=== PATIENT | male | born 1955 | race Caucasian/White ===

== ENCOUNTER 2020-04-14 09:34 | Inpatient (IN) | payer MEDICARE ==
[~2020-04-14] VITALS: Ht 162.6 cm; Wt 63.5 kg
[2020-04-14 09:59] VITALS: BP 106/72
[2020-04-14 10:22] LABS: BASOPHILS % (AUTO) 0.6 % (0.0-2.0); EOSINOPHILS % (AUTO) 0.9 % (0.0-3.0); HEMATOCRIT 40.6 % (42.0-52.0); HEMOGLOBIN 13.1 G/DL (14.2-18.0); LYMPHOCYTES % (AUTO) 12.1 % (20.0-45.0); MEAN CORPUSCULAR VOLUME 83 FL (80-99); MONOCYTES % (AUTO) 5.2 % (1.0-10.0); NEUTROPHILS % (AUTO) 81.2 % (45.0-75.0); PLATELET COUNT 219 K/UL (150-450); RED BLOOD COUNT 4.88 M/UL (4.70-6.10); WHITE BLOOD COUNT 10.1 K/UL (4.8-10.8)
[2020-04-14] MEDS ORDERED: METFORMIN HCL500 M1 ORAL (10:25)
[2020-04-14] MEDS ORDERED: LOSARTAN POTASS50 MG ORAL (10:25)
[2020-04-14] MEDS ORDERED: METOPROLOL TART25 MG ORAL (10:25)
[2020-04-14] MEDS ORDERED: AMLODIPINE BESY10 MG ORAL (10:25)
[2020-04-14] MEDS ORDERED: ATIVAN1 MG ORAL (10:25)
[2020-04-14] MEDS ORDERED: ASPIRIN81 MG ORAL (10:25)
[2020-04-14] MEDS ORDERED: ATORVASTATIN CA40 MG ORAL (10:25)
[2020-04-14] MEDS ORDERED: INVEGA6 MG PO (10:25)
[2020-04-14] MEDS ORDERED: FERROUS SULFAT325 MG ORAL (10:25)
[2020-04-14] MEDS ORDERED: FLUOXETINE HCL10 M2 ORAL (10:25)
--- NOTE | 2020-04-14 10:25 | Emergency Room Report ---
History of Present Illness General Chief Complaint: General Complaint Source: Patient Present Illness HPI 65-year-old male history of hypertension, living in a boarding care presents with increasing confusion forgetfulness over the past few days, no known aggravating alleviating factors severity is moderate, constant patient was sent in by his primary care physician Dr. Benson, patient currently has a victoria review of systems negative no fevers no chills no headaches no chest pain no shortness of breath no nausea no vomiting no abdominal pain no dysuria no diarrhea. Patient states nothing is currently bothering him Allergies: Coded Allergies: No Known Allergies (Unverified , 04/14/20) COVID-19 Screening Contact w/high risk pt: No Experienced COVID-19 symptoms?: No COVID-19 Testing performed MORTUARY BEAUTICIAN: No Patient History Past Medical History: see triage record Reviewed Nursing Documentation: PMH: Agreed; PSxH: Agreed Nursing Documentation-PMH Past Medical History: No History, Except For Hx Diabetes: Yes Review of Systems All Other Systems: negative except mentioned in HPI Physical Exam Vital Signs Date Time Temp Pulse Resp B/P (MAP) Pulse Ox O2 Delivery O2 Flow Rate FiO2 04/14/20 09:39 97.3 71 19 116/66 (83) 98 Room Air Sp02 EP Interpretation: reviewed, normal General Appearance: well appearing, no apparent distress, alert Head: normocephalic, atraumatic Eyes: bilateral eye PERRL, bilateral eye EOMI ENT: uvula midline, moist mucus membranes Neck: supple, thyroid normal, supple/symm/no masses Respiratory: lungs clear, no respiratory distress, no retraction, no accessory muscle use Cardiovascular #1: normal peripheral pulses, regular rate, rhythm, no edema, no gallop, no murmur Gastrointestinal: non tender, soft, no guarding, no rebound Musculoskeletal: normal inspection Neurologic: alert, oriented x3 Psychiatric: mood/affect normal Skin: no rash, warm/dry Medical Decision Making Diagnostic Impression: Primary Impression: AMS (altered mental status) Qualified Codes: R41.82 - Altered mental status, unspecified Additional Impression: Dehydration ER Course 65-year-old male resents with increasing confusion altered mental state, differential includes electrolyte, metabolic, infectious. Patient will be worked up thoroughly, plan for admission and evaluation by his primary care physician Patient with elevated lactic acid, possible dehydration, patient given 1L NS Patient admitted to Dr. Marcelino Laboratory Tests Test 04/14/20 09:55 04/14/20 10:10 04/14/20 10:45 POC Whole Blood Glucose 134 MG/DL (74-106) H White Blood Count 10.1 K/UL (4.8-10.8) Red Blood Count 4.88 M/UL (4.70-6.10) Hemoglobin 13.1 G/DL (14.2-18.0) L Hematocrit 40.6 % (42.0-52.0) L Mean Corpuscular Volume 83 FL (80-99) Mean Corpuscular Hemoglobin 26.7 PG (27.0-31.0) L Mean Corpuscular Hemoglobin Concent 32.2 G/DL (32.0-36.0) Red Cell Distribution Width 13.0 % (11.6-14.8) Platelet Count 219 K/UL (150-450) Mean Platelet Volume 8.8 FL (6.5-10.1) Neutrophils (%) (Auto) 81.2 % (45.0-75.0) H Lymphocytes (%) (Auto) 12.1 % (20.0-45.0) L Monocytes (%) (Auto) 5.2 % (1.0-10.0) Eosinophils (%) (Auto) 0.9 % (0.0-3.0) Basophils (%) (Auto) 0.6 % (0.0-2.0) Prothrombin Time 11.8 SEC (9.30-11.50) H Prothrombin Time INR 1.1 (0.9-1.1) Activated Partial Thromboplast Time 27 SEC (23-33) Sodium Level 137 MMOL/L (136-145) Potassium Level 3.7 MMOL/L (3.5-5.1) Chloride Level 100 MMOL/L (98-107) Carbon Dioxide Level 27 MMOL/L (21-32) Anion Gap 10 mmol/L (5-15) Blood Urea Nitrogen 17 mg/dL (7-18) Creatinine 1.2 MG/DL (0.55-1.30) Estimated Glomerular Filtration Rate > 60 mL/min (>60) Glucose Level 131 MG/DL (74-106) H Lactic Acid Level 2.80 mmol/L (0.4-2.0) H Calcium Level 9.5 MG/DL (8.5-10.1) Phosphorus Level 1.6 MG/DL (2.5-4.9) L Magnesium Level 1.4 MG/DL (1.8-2.4) L Total Bilirubin 0.6 MG/DL (0.2-1.0) Aspartate Amino Transferase (AST) 17 U/L (15-37) Alanine Aminotransferase (ALT) 18 U/L (12-78) Alkaline Phosphatase 103 U/L (46-116) Creatine Kinase MB 1.0 NG/ML (0.0-3.6) Troponin I 0.000 ng/mL (0.000-0.056) Pro-B-Type Natriuretic Peptide 346 pg/mL (0-125) H Total Protein 7.2 G/DL (6.4-8.2) Albumin 3.7 G/DL (3.4-5.0) Globulin 3.5 g/dL Albumin/Globulin Ratio 1.1 (1.0-2.7) Lipase 175 U/L (73-393) Urine Color Pale yellow Urine Appearance Clear Urine pH 8 (4.5-8.0) Urine Specific [place] 1.005 (1.005-1.035) Urine Protein Negative (NEGATIVE) Urine Glucose (UA) Negative (NEGATIVE) Urine Ketones Negative (NEGATIVE) Urine Blood Negative (NEGATIVE) Urine Nitrite Negative (NEGATIVE) Urine Bilirubin Negative (NEGATIVE) Urine Urobilinogen Normal MG/DL (0.0-1.0) Urine Leukocyte Esterase Negative (NEGATIVE) EKG Diagnostic Results Troponin ordered: Yes When was troponin ordered?: Apr 14, 2020 EKG Time: 09:57 EP Interpretation: NSR, rate 63, QTc 448, no acute ST elevations, normal axis Rhythm Strip Diag. Results Rhythm Strip Time: 10:24 EP Interpretation: yes Rate: 62 Rhythm: NSR, no PVC's, no ectopy Chest X-Ray Diagnostic Results Chest X-Ray Diagnostic Results : Chest X-Ray Ordered: Yes # of Views/Limited/Complete: 1 View Indication: Chest Pain EP Interpretation: Yes Interpretation: no consolidation, no effusion, no pneumothorax, no acute cardiopulmonary disease Impression: No acute disease Electronically Signed by: Alberto Rivera MD CT/MRI/US Diagnostic Results CT/MRI/US Diagnostic Results : Impression CT head: No acute intracranial processes Last Vital Signs Date Time Temp Pulse Resp B/P (MAP) Pulse Ox O2 Delivery O2 Flow Rate FiO2 04/14/20 09:59 97.0 65 12 106/72 100 Room Air Disposition: ADMITTED INPATIENT Condition: Stable Referrals: NOT CHOSEN IPA/,REFERRING (PCP) Alberto Rivera MD Apr 14, 2020 10:25
[2020-04-14 10:30] LABS: INR 1.1 (0.9-1.1)
[2020-04-14 10:39] LABS: ANION GAP 10 mmol/L (5-15); BLOOD UREA NITROGEN 17 mg/dL (7-18); CALCIUM 9.5 MG/DL (8.5-10.1); CARBON DIOXIDE 27 MMOL/L (21-32); CHLORIDE 100 MMOL/L (98-107); CREATININE 1.2 MG/DL (0.55-1.30); POTASSIUM 3.7 MMOL/L (3.5-5.1); SODIUM 137 MMOL/L (136-145)
[2020-04-14 10:52] LABS: ALANINE AMINOTRANSFERASE 18 U/L (12-78); ALBUMIN 3.7 G/DL (3.4-5.0); ALBUMIN/GLOBULIN RATIO 1.1 (1.0-2.7); ALKALINE PHOSPHATASE 103 U/L (46-116); ASPARTATE AMINO TRANSFERASE 17 U/L (15-37); BILIRUBIN,TOTAL 0.6 MG/DL (0.2-1.0); PHOSPHORUS 1.6 MG/DL (2.5-4.9)
[2020-04-14 11:04] LABS: APPEARANCE,URINE CLEAR; BILIRUBIN, URINE NEGATIVE (NEGATIVE); COLOR,URINE PALE YELLOW; GLUCOSE, URINE (UA) NEGATIVE (NEGATIVE); KETONES,URINE NEGATIVE (NEGATIVE); LEUKOCYTE ESTERASE ,URINE NEGATIVE (NEGATIVE); NITRITE,URINE NEGATIVE (NEGATIVE); PH,URINE 8 (4.5-8.0); PROTEIN,URINE NEGATIVE (NEGATIVE); UROBILINOGEN,URINE NORMAL MG/DL (0.0-1.0)
--- NOTE | 2020-04-14 12:45 | NUR ---
Report called to floor for pending admission. Asked by nurse to wait for 15mins until room is cleaned.
--- NOTE | 2020-04-14 12:52 | Diagnostic Imaging Report ---
Indications: Altered mental status Technique: Spiral acquisitions obtained through the brain. Angled axial and coronal 5 x 5 mm slices were reconstructed. Total dose length product 1098 mGycm. CTDI vol(s) 53 mGy. Dose reduction achieved using automated exposure control Comparison: None. Findings: There is age-related enlargement of the ventricles and extra axial CSF spaces. There is minimal periventricular deep white matter low-attenuation consistent with chronic microvascular ischemic change. Normal blum-white differentiation otherwise. No acute intracranial hemorrhage or edema, mass effect, nor midline shift. The mastoids are clear. Visualized orbits and sinuses are unremarkable. Impression: Chronic and age-related changes. Negative for acute intracranial bleed or mass effect The CT scanner at [facility] is accredited by the [employer] and the scans are performed using protocols designed to limit radiation exposure to as low as reasonably achievable to attain images of sufficient resolution adequate for diagnostic evaluation.
--- NOTE | 2020-04-14 13:05 | NUR ---
Received patient from assisted living facility. Per facility, patient exhibited AMS and was sent for observation but he will not be accepted back to facility. Patient came in to ER with 7 bags of clothing. Since coming in to ER, patient has been stable. AAOX3-4. Came in wearing pull-ups but was able to use a urinal when asked. Able to follow all commands. Ambulates with assistance of walker. Will be admitted until placement is found.
--- NOTE | 2020-04-14 13:20 | NUR ---
Seen by admitting Dr Benson. Patient will be admitted and transported to floor.
[2020-04-14] MEDS ORDERED: LORazepam 1mg tab ORAL PRN (13:30)
--- NOTE | 2020-04-14 13:54 | History and Physical ---
History of Present Illness General Date patient seen: Apr 14, 2020 Time patient seen: 13:00 Reason for Hospitalization: weakness Present Illness HPI 65-year-old male history of hypertension, living in a boarding care presents with increasing confusion forgetfulness over the past few days, no known aggravating alleviating factors severity is moderate, constant patient was sent in by me. The patient currently has a victoria review of systems negative no fevers no chills no headaches no chest pain no shortness of breath no nausea no vomiting no abdominal pain no dysuria no diarrhea. Patient states nothing is currently bothering him and in initial blood work was noted to be dehydrated with electrolyte imbalance. His Lactic acid was elevated and no acute source of infection is noted. Allergies: Coded Allergies: No Known Allergies (Unverified , 04/14/20) COVID-19 Screening Contact w/high risk pt: No Experienced COVID-19 symptoms?: No Medication History Scheduled Amlodipine Besylate* (Amlodipine Besylate*), 10 MG ORAL DAILY, (Reported) Aspirin* (Aspirin*), 81 MG ORAL DAILY, (Reported) Atorvastatin Calcium* (Atorvastatin Calcium*), 40 MG ORAL BEDTIME, (Reported) Ferrous Sulfate* (Ferrous Sulfate*), 325 MG ORAL DAILY, (Reported) Fluoxetine Hcl* (Fluoxetine Hcl*), 10 MG ORAL DAILY, (Reported) Lorazepam* (Ativan*), 1 MG ORAL BEDTIME, (Reported) Losartan Potassium* (Losartan Potassium*), 100 MG ORAL DAILY, (Reported) Metformin Hcl* (Metformin Hcl*), 500 MG ORAL DAILY, (Reported) Metoprolol Tartrate* (Metoprolol Tartrate*), 25 MG ORAL EVERY 12 HOURS, (Reported) Miscellaneous Medications Paliperidone (Invega), 6 MG PO, (Reported) Patient History Healthcare decision maker Resuscitation status Advanced Directive on File Social History Social History: (1) Dehydration (2) Hypomagnesemia (3) Hypophosphatemia (4) AMS (altered mental status) Review of Systems All Other Systems: negative except mentioned in HPI Physical Exam General Appearance: WD/WN Lines, tubes and drains: peripheral HEENT: normocephalic, atraumatic Neck: non-tender Respiratory/Chest: lungs clear Cardiovascular/Chest: normal rate Abdomen: non tender, soft Extremities: non-tender Skin Exam: normal pigmentation 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 Last 24 Hour Vital Signs Date Time Temp Pulse Resp B/P (MAP) Pulse Ox O2 Delivery O2 Flow Rate FiO2 04/14/20 10:45 65 16 04/14/20 09:59 97.0 65 12 106/72 100 Room Air 04/14/20 09:39 97.3 71 19 116/66 (83) 98 Room Air Laboratory Tests Test 04/14/20 09:55 04/14/20 10:10 04/14/20 10:45 POC Whole Blood Glucose 134 MG/DL (74-106) H White Blood Count 10.1 K/UL (4.8-10.8) Red Blood Count 4.88 M/UL (4.70-6.10) Hemoglobin 13.1 G/DL (14.2-18.0) L Hematocrit 40.6 % (42.0-52.0) L Mean Corpuscular Volume 83 FL (80-99) Mean Corpuscular Hemoglobin 26.7 PG (27.0-31.0) L Mean Corpuscular Hemoglobin Concent 32.2 G/DL (32.0-36.0) Red Cell Distribution Width 13.0 % (11.6-14.8) Platelet Count 219 K/UL (150-450) Mean Platelet Volume 8.8 FL (6.5-10.1) Neutrophils (%) (Auto) 81.2 % (45.0-75.0) H Lymphocytes (%) (Auto) 12.1 % (20.0-45.0) L Monocytes (%) (Auto) 5.2 % (1.0-10.0) Eosinophils (%) (Auto) 0.9 % (0.0-3.0) Basophils (%) (Auto) 0.6 % (0.0-2.0) Prothrombin Time 11.8 SEC (9.30-11.50) H Prothromb Time International Ratio 1.1 (0.9-1.1) Activated Partial Thromboplast Time 27 SEC (23-33) Sodium Level 137 MMOL/L (136-145) Potassium Level 3.7 MMOL/L (3.5-5.1) Chloride Level 100 MMOL/L (98-107) Carbon Dioxide Level 27 MMOL/L (21-32) Anion Gap 10 mmol/L (5-15) Blood Urea Nitrogen 17 mg/dL (7-18) Creatinine 1.2 MG/DL (0.55-1.30) Estimat Glomerular Filtration Rate > 60 mL/min (>60) Glucose Level 131 MG/DL (74-106) H Lactic Acid Level 2.80 mmol/L (0.4-2.0) H Calcium Level 9.5 MG/DL (8.5-10.1) Phosphorus Level 1.6 MG/DL (2.5-4.9) L Magnesium Level 1.4 MG/DL (1.8-2.4) L Total Bilirubin 0.6 MG/DL (0.2-1.0) Aspartate Amino Transf (AST/SGOT) 17 U/L (15-37) Alanine Aminotransferase (ALT/SGPT) 18 U/L (12-78) Alkaline Phosphatase 103 U/L (46-116) Creatine Kinase MB 1.0 NG/ML (0.0-3.6) Troponin I 0.000 ng/mL (0.000-0.056) Pro-B-Type Natriuretic Peptide 346 pg/mL (0-125) H Total Protein 7.2 G/DL (6.4-8.2) Albumin 3.7 G/DL (3.4-5.0) Globulin 3.5 g/dL Albumin/Globulin Ratio 1.1 (1.0-2.7) Lipase 175 U/L (73-393) Urine Color Pale yellow Urine Appearance Clear Urine pH 8 (4.5-8.0) Urine Specific [place] 1.005 (1.005-1.035) Urine Protein Negative (NEGATIVE) Urine Glucose (UA) Negative (NEGATIVE) Urine Ketones Negative (NEGATIVE) Urine Blood Negative (NEGATIVE) Urine Nitrite Negative (NEGATIVE) Urine Bilirubin Negative (NEGATIVE) Urine Urobilinogen Normal MG/DL (0.0-1.0) Urine Leukocyte Esterase Negative (NEGATIVE) Height (Feet): 5 Height (Inches): 4.00 Weight (Pounds): 140 Medications Current Medications Medications (Trade) Dose Ordered Sig/Tyler Route PRN Reason Start Time Stop Time Status Last Admin Dose Admin Acetaminophen (Tylenol) 650 mg Q4H PRN ORAL Mild Pain (Pain Scale 1-3) 04/14/20 13:30 05/14/20 13:29 UNV Amlodipine Besylate (Norvasc) 10 mg DAILY ORAL 04/15/20 09:00 05/15/20 08:59 UNV Aspirin (ASA) 81 mg DAILY ORAL 04/15/20 09:00 05/30/20 08:59 UNV Atorvastatin Calcium (Lipitor) 40 mg BEDTIME ORAL 04/14/20 21:00 07/13/20 20:59 UNV Dextrose (Dextrose 50%) 25 ml Q30M PRN IV Hypoglycemia 04/14/20 13:30 07/13/20 13:29 UNV Dextrose (Dextrose 50%) 50 ml Q30M PRN IV Hypoglycemia 04/14/20 13:30 07/13/20 13:29 UNV Docusate Sodium (Colace) 100 mg EVERY 12 HOURS ORAL 04/14/20 21:00 05/14/20 20:59 UNV Enoxaparin Sodium (Lovenox) 40 mg DAILY SUBQ 04/14/20 14:30 07/13/20 14:29 Famotidine (Pepcid) 40 mg DAILY ORAL 04/15/20 09:00 07/14/20 08:59 UNV Ferrous Sulfate (Feosol) 325 mg DAILY ORAL 04/15/20 09:00 07/14/20 08:59 UNV Fluoxetine HCl (PROzac) 10 mg DAILY ORAL 04/15/20 09:00 05/15/20 08:59 UNV Lorazepam (Ativan) 1 mg BEDTIME ORAL 04/14/20 21:00 04/21/20 20:59 UNV Lorazepam (Ativan) 1 mg Q4H PRN ORAL For Anxiety 04/14/20 13:30 04/21/20 13:29 UNV Losartan Potassium (Cozaar) 100 mg DAILY ORAL 04/15/20 09:00 05/15/20 08:59 UNV Magnesium Sulfate 100 ml @ 100 mls/hr Q1H IVPB 04/14/20 14:00 04/14/20 15:59 04/14/20 13:39 Metformin HCl (Glucophage) 500 mg DAILY ORAL 04/15/20 09:00 05/15/20 08:59 UNV Metoprolol Tartrate (Lopressor) 25 mg EVERY 12 HOURS ORAL 04/14/20 21:00 07/13/20 20:59 UNV Ondansetron HCl (Zofran) 4 mg Q6H PRN IVP Nausea & Vomiting 04/14/20 13:30 05/14/20 13:29 UNV Potassium Phosphate 20 mm/ Sodium Chloride 281.6667 ml @ 46.944 m... ONCE ONCE IV 04/14/20 14:00 04/14/20 19:59 Sodium Chloride 1,000 ml @ 75 mls/hr [id number] IVLG 04/14/20 14:30 04/15/20 09:00 UNV Assessment/Plan Status: stable Assessment/Plan: 65 y/o M admitted to the Hospital with 1/ Altered mental staus 2. Dehydration 3. Hypomagnesemia 4. Hypophosphatemia 5. Elevated lactic acid 6. HTN 7. HLD 8. T2DM 9. Lives at Board and Care 10. FULL CODE DVT and GI ppx Plan: Admit to the Hospital Med Surg IVF and replete electrolytes. Mag and Phos ordered to start Repeat Lactic Acid at 1600 IVF overnight PT evaluation for baseline and dc plan CM follow up for board and care confirmation. If patient needs a new board and care, it will be coordinated with current board and animal care specialist and I can help putting them in touch with CM at [facility] as needed. Natty Benson MD Apr 14, 2020 13:54
[2020-04-14] MEDS ORDERED: Potassium Phosphate 20 MM in NS 275 ML IV ONE (14:00)
--- NOTE | 2020-04-14 14:40 | NUR ---
NURSE NOTES: Patient came to unit by shawn in stable condition. Alert and oriented x4. No complain of pain or distress at this time. Skin intact and dry. IV dressing intact and dry. Bed lowest position and side rails up. Call light within reach. Will continue to monitor.
[2020-04-14 14:45] VITALS: BP 114/69
[2020-04-14] MEDS: Enoxaparin 40mg Inj SUBQ SCH (15:16)
--- NOTE | 2020-04-14 15:52 | Diagnostic Imaging Report ---
Indication: Cough Technique: One view of the chest Comparison: none Findings: Lungs and pleural spaces are clear. Heart size is normal. Impression: No acute process
--- NOTE | 2020-04-14 16:04 | NUR ---
NURSE NOTES: Spoke to regarding patient and new MRSA / VRE / CRE order received. Order read back and carried out.
--- NOTE | 2020-04-14 17:52 | NUR ---
NURSE NOTES: Patient stated he has wallet and cellphone. Found black [employer] flip phone and rack carrier x3. But Patient stated that that's not the right cellphone. No wallet found. Patient refused to go over small briefcase. Charge nurse notified.
--- NOTE | 2020-04-14 19:12 | NUR ---
NURSE HAND-OFF: Important Events on Shift:New admission Patient Status: Stable Diet: Regular Pending Orders: N/A Pending Results/Labs:CBC, BMP on 04/15 Pending MD notification:N/A Latest Vital Signs: Temperature 97.7 , Pulse 75 , B/P 114 /69 , Respiratory Rate 20 , O2 SAT 98 , Room Air, O2 Flow Rate . Vital Sign Comment: Stable Latest Vann Fall Score: 35 Fall Risk: Medium Risk Safety Measures: Call light Within Reach, Bed Alarm Zone 1, Side Rails Side Rails x1, Bed position Low and Locked. Fall Precautions: Yellow Socks Yellow Gown Door Sign Patient Fall Education Report given to Sharmaine FIGUEROA. Patient in stable condition.
--- NOTE | 2020-04-14 19:40 | NUR ---
NURSE NOTES: Received patient awake, resting in bed, follows simple command, no complaints,
[2020-04-14 20:27] VITALS: BP 90/48
[2020-04-14] MEDS: LORazepam 1mg tab ORAL SCH (20:37)
[2020-04-14] MEDS: Atorvastatin 20mg tab ORAL SCH (20:38)
[2020-04-14] MEDS: Docusate 100mg cap ORAL SCH (20:38)
[2020-04-15 00:02] VITALS: BP 89/55
[2020-04-15 04:10] VITALS: BP 98/57
--- NOTE | 2020-04-15 07:07 | NUR ---
NURSE HAND-OFF: Important Events on Shift:[]Stable Patient Status: [] Diet: [] Pending Orders: [] Pending Results/Labs:[] Pending MD notification:[] Latest Vital Signs: Temperature 98.6 , Pulse 82 , B/P 98 /57 , Respiratory Rate 16 , O2 SAT 95 , Room Air, O2 Flow Rate . Vital Sign Comment: [] Latest Vann Fall Score: 35 Fall Risk: Medium Risk Safety Measures: Call light Within Reach, Bed Alarm Zone 2, Side Rails Side Rails x2, Bed position Low and Locked. Fall Precautions: Yellow Socks Report given to [].
--- NOTE | 2020-04-15 07:10 | NUR ---
NURSE NOTES: Patient lying in bed awake. No complain of pain or distress at this time. IV dressing intact and dry. Bed lowest position and side rails up. Call light within reach. Will continue to monitor.
[2020-04-15 07:24] LABS: BASOPHILS % (AUTO) 0.7 % (0.0-2.0); EOSINOPHILS % (AUTO) 3.4 % (0.0-3.0); HEMATOCRIT 34.1 % (42.0-52.0); HEMOGLOBIN 11.2 G/DL (14.2-18.0); LYMPHOCYTES % (AUTO) 21.4 % (20.0-45.0); MEAN CORPUSCULAR VOLUME 84 FL (80-99); MONOCYTES % (AUTO) 8.5 % (1.0-10.0); NEUTROPHILS % (AUTO) 66.1 % (45.0-75.0); PLATELET COUNT 163 K/UL (150-450); RED BLOOD COUNT 4.08 M/UL (4.70-6.10); WHITE BLOOD COUNT 6.4 K/UL (4.8-10.8)
[2020-04-15 07:56] LABS: ANION GAP 9 mmol/L (5-15); BLOOD UREA NITROGEN 19 mg/dL (7-18); CALCIUM 8.4 MG/DL (8.5-10.1); CARBON DIOXIDE 25 MMOL/L (21-32); CHLORIDE 106 MMOL/L (98-107); POTASSIUM 3.9 MMOL/L (3.5-5.1); SODIUM 140 MMOL/L (136-145)
[2020-04-15 08:00] VITALS: BP 96/56
--- NOTE | 2020-04-15 08:31 | NUR ---
CASE MANAGEMENT:REVIEW 65YR OLD MALE FROM [facility] TO ER CC: SENT TO ER BY [facility]ISTED LIVING D/T AMS. NOT ABLE TO RETURN. DIZZINESS. INCONTINENCE SI:AMS. HYPOMAGNESIUM 97.4 71 19 106/72 98% ON RA H/H-13.1/40.6 MAG-1.4 IS: 1L NS BOLUS IV MAG SULFATE X2 IV K-PHOS CT HEAD CHEST XRAY : TO MED/SURG 4 EAST DCP: WILL NEED PLACEMENT
[2020-04-15] MEDS: Losartan 50mg tab ORAL SCH (09:00)
--- NOTE | 2020-04-15 09:25 | NUR ---
PT EVALUATION NOTE Patient seen for initial evaluation and treatment initiated. Patient presents with generalized weakness and impulsivity which impairs patient's ability to perform mobility skills safely. Patient able to perform bed mobility with SBA. Sit to stand with CGA and FWW. Patient declined to attempt ambulation. Patient will benefit from skilled inpatient PT intervention to increase strength and postural stability for improved level of functional mobility and safety. Recommend discharge to SNF once medically cleared by MD. Addendum: 04/15/20 at 1107 by KASSIDY GOODWIN PT Amended: Links added.
[2020-04-15] MEDS: Aspirin Baby 81mg ORAL SCH (09:42)
[2020-04-15] MEDS: FLUoxetine 10mg cap ORAL SCH (09:42)
[2020-04-15] MEDS: Docusate 100mg cap ORAL SCH ×2 (09:42→20:30)
[2020-04-15] MEDS: metFORMIN 500mg tab ORAL SCH (09:42)
[2020-04-15] MEDS: Enoxaparin 40mg Inj SUBQ SCH (09:44)
--- NOTE | 2020-04-15 09:45 | NUR ---
NURSE NOTES: Spoke to regarding morning blood pressure and scheduled BP medications. New order received. Order read back and carried out. Per :doesn't need Blood sugar checking.
[2020-04-15 12:00] VITALS: BP 101/55
--- NOTE | 2020-04-15 12:04 | General Progress Note ---
Subjective Date patient seen: Apr 15, 2020 Time patient seen: 12:00 ROS Limited/Unobtainable: Yes Allergies: Coded Allergies: No Known Allergies (Unverified , 04/14/20) All Systems: reviewed and negative except above Objective Last 24 Hour Vital Signs Date Time Temp Pulse Resp B/P (MAP) Pulse Ox O2 Delivery O2 Flow Rate FiO2 04/15/20 09:00 Room Air 04/15/20 09:00 85 96/56 04/15/20 09:00 96/56 04/15/20 09:00 85 96/56 04/15/20 08:00 97.9 85 18 96/56 (69) 96 04/15/20 04:10 98.6 82 16 98/57 (71) 95 04/15/20 00:02 99.1 67 16 89/55 (66) 94 04/14/20 20:47 Room Air 04/14/20 20:38 74 90/48 04/14/20 20:37 74 16 90/48 94 04/14/20 20:27 99.1 74 16 90/48 (62) 94 04/14/20 14:48 Room Air 04/14/20 14:45 97.7 75 20 114/69 (84) 98 04/14/20 14:30 97.0 16 106/72 100 Room Air Intake and Output 04/14/20 04/15/20 19:00 07:00 Intake Total 1356.944 ml 970 ml Output Total 150 ml Balance 1206.944 ml 970 ml Intake Oral 1310 ml 220 ml IV Total 46.944 ml 750 ml Output Urine Total 150 ml # Voids 1 3 Laboratory Tests 04/14/20 16:03: Lactic Acid Level 1.90 04/15/20 05:55: White Blood Count 6.4, Red Blood Count 4.08L, Hemoglobin 11.2L, Hematocrit 34.1L , Mean Corpuscular Volume 84, Mean Corpuscular Hemoglobin 27.4, Mean Corpuscular Hemoglobin Concent 32.8, Red Cell Distribution Width 13.0, Platelet Count 163, Mean Platelet Volume 8.8, Neutrophils (%) (Auto) 66.1, Lymphocytes (%) (Auto) 21.4, Monocytes (%) (Auto) 8.5, Eosinophils (%) (Auto) 3.4H, Basophils (%) (Auto) 0.7, Sodium Level 140, Potassium Level 3.9, Chloride Level 106, Carbon Dioxide Level 25, Anion Gap 9, Blood Urea Nitrogen 19H, Creatinine 1.0, Estimat Glomerular Filtration Rate > 60, Glucose Level 91, Calcium Level 8.4L Height (Feet): 5 Height (Inches): 4.00 Weight (Pounds): 140 General Appearance: WD/WN EENT: PERRL/EOMI Neck: non-tender Cardiovascular: normal peripheral pulses Respiratory/Chest: chest wall non-tender Abdomen: non tender Extremities: non-tender Neurologic: construction laborer II-XII grossly normal Assessment/Plan Status: stable Assessment/Plan: 65 y/o M admitted to the Hospital with 1. Altered mental status. Improved. 2. Dehydration 3. Hypomagnesemia 4. Hypophosphatemia 5. Elevated lactic acid, resolved. 6. HTN 7. HLD 8. T2DM on Metformin 9. Lives at Board and Care 10. FULL CODE DVT and GI ppx Plan: Admit to the Hospital Med Surg IVF with electrolytes completed. Tolerating diet so will HL IVF and monitor. PT evaluation for baseline reviewed and SNF level of care is recommended. Referral placed. Monitor labs. Natty Benson MD Apr 15, 2020 12:04
--- NOTE | 2020-04-15 13:12 | NUR ---
*-*DISCHARGE PLANNING*-* PATIENT HAS BEEN REFERRED TO: [facility] P: [phone] S/W MICHELLE, WILL CALL BACK AFTER REVIEW.
[2020-04-15 16:00] VITALS: BP 120/72
--- NOTE | 2020-04-15 19:00 | NUR ---
NURSE HAND-OFF: Important Events on Shift: D/C IV fluid, Need placement Patient Status: Stable Diet: Regular Pending Orders: N/A Pending Results/Labs:CBC, CMP on 04/16 Pending MD notification:N/A Latest Vital Signs: Temperature 98.7 , Pulse 78 , B/P 120 /72 , Respiratory Rate 18 , O2 SAT 97 , Room Air, O2 Flow Rate . Vital Sign Comment: Stable Latest Vann Fall Score: 35 Fall Risk: Medium Risk Safety Measures: Call light Within Reach, Bed Alarm Zone 2, Side Rails Side Rails x2, Bed position Low and Locked. Fall Precautions: Yellow Socks Door Sign Patient Fall Education Report given to Sharmaine FIGUEROA. Patient in stable condition.
[2020-04-15 19:46] VITALS: BP 116/77
--- NOTE | 2020-04-15 19:50 | NUR ---
NURSE NOTES: Received patient comfortably resting in bed with essentially normal vital signs.
[2020-04-15] MEDS: LORazepam 1mg tab ORAL SCH (20:30)
[2020-04-15] MEDS: Atorvastatin 20mg tab ORAL SCH (20:30)
[2020-04-16] VITALS: BP 103/66
--- NOTE | 2020-04-16 02:25 | Cardiology Report ---
APPROVED REPORT EKG Measurement Heart [id number] <Conclusion> Normal sinus rhythm Rightward axis Borderline ECG
[2020-04-16 04:00] VITALS: BP 109/72
--- NOTE | 2020-04-16 06:35 | NUR ---
NURSE HAND-OFF: Important Events on Shift:[]Looking for placement Patient Status: []Stable Diet: []Regular Pending Orders: [] Pending Results/Labs:[] Pending MD notification:[] Latest Vital Signs: Temperature 97.9 , Pulse 63 , B/P 109 /72 , Respiratory Rate 16 , O2 SAT 98 , Room Air, O2 Flow Rate . Vital Sign Comment: [] Latest Vann Fall Score: 35 Fall Risk: Medium Risk Safety Measures: Call light Within Reach, Bed Alarm Zone 2, Side Rails Side Rails x2, Bed position Low and Locked. Fall Precautions: Yellow Socks Door Sign Patient Fall Education Report given to [].
[2020-04-16 07:27] LABS: BASOPHILS % (AUTO) 1.7 % (0.0-2.0); EOSINOPHILS % (AUTO) 3.3 % (0.0-3.0); HEMATOCRIT 34.7 % (42.0-52.0); HEMOGLOBIN 11.4 G/DL (14.2-18.0); LYMPHOCYTES % (AUTO) 17.6 % (20.0-45.0); MEAN CORPUSCULAR VOLUME 84 FL (80-99); MONOCYTES % (AUTO) 12.5 % (1.0-10.0); NEUTROPHILS % (AUTO) 64.8 % (45.0-75.0); PLATELET COUNT 169 K/UL (150-450); RED BLOOD COUNT 4.14 M/UL (4.70-6.10); RED CELL DISTRIBUTION WIDTH 13.2 % (11.6-14.8); WHITE BLOOD COUNT 6.2 K/UL (4.8-10.8)
--- NOTE | 2020-04-16 07:39 | NUR ---
NURSE NOTES: Patient awake and alert and oriented respirations unlabored.Patient sitting up in bed and eating breakfast..Saline lock left arm in place.Call light within reach.
[2020-04-16 08:00] VITALS: BP 116/59
[2020-04-16 08:01] LABS: ALANINE AMINOTRANSFERASE 17 U/L (12-78); ALBUMIN 3.3 G/DL (3.4-5.0); ALKALINE PHOSPHATASE 90 U/L (46-116); ANION GAP 9 mmol/L (5-15); ASPARTATE AMINO TRANSFERASE 16 U/L (15-37); BILIRUBIN,TOTAL 0.4 MG/DL (0.2-1.0); BLOOD UREA NITROGEN 19 mg/dL (7-18); CALCIUM 8.7 MG/DL (8.5-10.1); CARBON DIOXIDE 26 MMOL/L (21-32); CHLORIDE 107 MMOL/L (98-107); POTASSIUM 3.9 MMOL/L (3.5-5.1); SODIUM 142 MMOL/L (136-145)
[2020-04-16] MEDS: FLUoxetine 10mg cap ORAL SCH (08:43)
[2020-04-16] MEDS: Aspirin Baby 81mg ORAL SCH (08:43)
[2020-04-16] MEDS: metFORMIN 500mg tab ORAL SCH (08:43)
[2020-04-16] MEDS: Docusate 100mg cap ORAL SCH (08:43)
[2020-04-16] MEDS: Enoxaparin 40mg Inj SUBQ SCH (08:47)
[2020-04-16] MEDS: Losartan 50mg tab ORAL SCH (11:50)
[2020-04-16 12:00] VITALS: BP 113/64
--- NOTE | 2020-04-16 12:07 | CDS Physician Query ---
Clarification is required for compliance, coding accuracy, and to reflect severity of illness for this patient Dear Dr. Natty Benson Date: 04/16/2019 [employer] Sprayer/CDS Name: Kia Prado Clinical Documentation states: HNP: 65-year-old male history of hypertension, living in a boarding care presents with increasing confusion forgetfulness over the past few days...1/ Altered mental staus 2. Dehydration 3. Hypomagnesemia 4. Hypophosphatemia 5. Elevated lactic acid Please indicate the nature and chronicity of the condition below: [] Metabolic Encephalopathy [] Toxic Encephalopathy [x] Toxic - Metabolic Encephalopathy [] Encephalopathy, Other [] Dementia with Delirium [] Hypoxic encephalopathy [] Posterior reversible encephalopathy syndrome [] Other: [] Not Applicable Present on Admission: [x] Yes [] No [] Clinically Undetermined Physician signature Date Please also document in your Progress Notes and/or Discharge Summary and indicate if the condition was present on admission. MTDD
--- NOTE | 2020-04-16 12:36 | Discharge Instructions ---
Discharge Instructions Discharge Instructions Diet: 2 GM sodium (low sodium) Resume Normal Activity?: Yes Activity: resume normal activities For Congestive Heart Failure Reminder Report to your physician any weight gain of 5 pounds or more in one week. Natty Benson MD Apr 16, 2020 12:36
--- NOTE | 2020-04-16 12:45 | Discharge Summary ---
Discharge Summary Hospital Course Date of Admission Apr 14, 2020 at 11:02 Date of Discharge 04/16/2020 Admitting Diagnosis altered mental status HPI Sanya Murdock is a 65 year old male who was admitted on Apr 14, 2020 at 11:02 for Altered Mental Status Hospital Course 65 y/o M admitted to the Hospital with 1. Altered mental status. Improved. 2. Dehydration 3. Hypomagnesemia 4. Hypophosphatemia 5. Elevated lactic acid, resolved. 6. HTN 7. HLD 8. T2DM on Metformin 9. Lives at Board and Care 10. FULL CODE DVT and GI ppx Plan: Admitted to the Hospital Med Surg IVF with electrolytes completed. Tolerating diet and now HL IV PT evaluation for baseline reviewed and SNF level of care is recommended. Referral placed. Monitor labs. He will be continued in his home medications. Discharge Medications Continued Medications: Amlodipine Besylate* (Amlodipine Besylate*) 10 Mg Tablet 10 MG ORAL DAILY for Hypertension, TAB Aspirin* (Aspirin*) 81 Mg Tab.chew 81 MG ORAL DAILY for Antiplatelet, TAB Atorvastatin Calcium* (Atorvastatin Calcium*) 40 Mg Tablet 40 MG ORAL BEDTIME for Dyslipidemia, TAB Ferrous Sulfate* (Ferrous Sulfate*) 325 Mg Tablet 325 MG ORAL DAILY for SUPPLEMENT, #30 TAB 0 Refills Fluoxetine Hcl* (Fluoxetine Hcl*) 10 Mg Tablet 10 MG ORAL DAILY for Mood, TAB Lorazepam* (Ativan*) 1 Mg Tablet 1 MG ORAL BEDTIME for anxiety, TAB Losartan Potassium* (Losartan Potassium*) 50 Mg Tablet 100 MG ORAL DAILY for Hypertension, TAB Metformin Hcl* (Metformin Hcl*) 500 Mg Tablet 500 MG ORAL DAILY for Diabetes Mellitus, TAB Metoprolol Tartrate* (Metoprolol Tartrate*) 25 Mg Tablet 25 MG ORAL EVERY 12 HOURS for HTN, TAB Paliperidone (Invega) 6 Mg Tab.er.24 6 MG PO for mood, TAB Discharge Condition Upon Discharge: stable Discharge Vital Signs Last Vital Signs Date Time Temp Pulse Resp B/P (MAP) Pulse Ox O2 Delivery O2 Flow Rate FiO2 04/16/20 11:50 72 102/56 04/16/20 09:48 Room Air 04/16/20 08:00 97.3 18 98 Discharge Disposition Patient was discharged to SNF Discharge Diagnoses: (1) Dehydration (2) Hypomagnesemia (3) Hypophosphatemia (4) AMS (altered mental status) Discharge Instructions Discharge Instructions Activity: resume normal activities Natty Benson MD Apr 16, 2020 12:45
--- NOTE | 2020-04-16 14:01 | NUR ---
*-*DISCHARGE PLANNING*-* PATIENT HAS BEEN REFERRED TO: [facility] P: [phone] FOR NURSE TO NURSE REPORT ROOM# 12.[facility] TRAN[facility] SET FOR 3PM S/W [facility] [id number]. PLACED A CALL TO YAIR RAMOS ON FACE-SHEET, NO ANSWER, LEFT VOICE MESSAGE IN REGARDS TO DISCHARGE PLAN.
--- NOTE | 2020-04-16 14:07 | NUR ---
*-*DISCHARGE PLANNED*-* PATIENT HAS BEEN ACCEPTED AND WILL BE DISCHARGED TO: [facility] P: [phone] FOR NURSE TO NURSE REPORT ROOM# 12.[facility] TRAN[facility] SET FOR 3PM S/W [facility] [id number]. PLACED A CALL TO YAIR RAMOS ON FACE-SHEET, NO ANSWER, LEFT VOICE MESSAGE IN REGARDS TO DISCHARGE PLAN.
[2020-04-16 16:00] VITALS: BP 118/67
--- NOTE | 2020-04-16 16:08 | NUR ---
NURSE NOTES: Patient discharge at this time,[facility] personnel will transport patient to facility.IV removed and ID hospital band removed.Patient has 9 bags of belongings ,patient has his cellphone,patient has walkers x2.Report was given.
== END 2020-04-16 16:00 | DRG 640 ==
LOC: EMR 10:19 → 4E 11:02 → EDBEDREQ 12:52
DX: E86.0 Dehydration (principal); G92 Toxic encephalopathy; E83.42 Hypomagnesemia; E83.39 Other disorders of phosphorus metabolism; I10 Essential (primary) hypertension; Z79.84 Long term (current) use of oral hypoglycemic drugs; Z79.82 Long term (current) use of aspirin; E78.5 Hyperlipidemia, unspecified; E11.9 Type 2 diabetes mellitus without complications
CPT/HCPCS: 36415; 70450; 71045; 80048; 80053; 81003; 82553; 82962; 83605; 83690; 83735; 83880; 84100; 84484; 85025; 85610; 85730; 87081; 93005; 96360; 99285; J7030